=== PATIENT | male | born 1955 | race Caucasian/White ===

== ENCOUNTER 2016-05-22 16:09 | Outpatient (CLI) | payer OTHER | END 2016-05-22 23:00 | LOC: LAB SRH 16:09 | DX: Z79.01 Long term (current) use of anticoagulants (principal); I82.5Z9 Chronic embolism and thrombosis of unspecified deep veins of unspecified distal lower extremity; I48.91 Unspecified atrial fibrillation | CPT/HCPCS: 90074; 94060 ==

== ENCOUNTER → 2016-06-27 | Outpatient (CLI) | payer OTHER | LOC: LAB SRH 19:03 | DX: Z51.81 Encounter for therapeutic drug level monitoring (principal); Z79.01 Long term (current) use of anticoagulants; I48.91 Unspecified atrial fibrillation | CPT/HCPCS: 90074; 94060 ==

== ENCOUNTER 2016-07-20 18:57 | Emergency (ER) | payer OTHER ==
--- NOTE | 2016-07-20 22:49 | ED CLINICAL REPORT ---
Clinical Report - Physicians/Mid Levels [facility] [address] [place] [address] 07/20/2016 18:58 Patient: KAREL VAZQUEZ Arrived- By private vehicle. Historian- patient. HISTORY OF PRESENT ILLNESS Chief Complaint: SKIN RASH and TENDER AREA and (bilat LE edema/erythema). This started 2 months ago and is still present. It is described as painful. It has been located on the right lower extremity and left lower extremity. A possible cause has been identified. Similar symptoms previously: Milder. Recent medical care: Not recently seen/assessed. REVIEW OF SYSTEMS No fever, chills, difficulty breathing, enlarged lymph nodes or headache. No nausea or vomiting. PAST HISTORY See nurses notes. Hypertension. Diabetes mellitus. has not seen PCP for about 9 months-at . Pt staying here caring for mom. Concern-diabetes induced? Also w/ rash on flexural surfaces, knees,elbows. SOCIAL HISTORY Never smoker. No alcohol use or drug use. ADDITIONAL NOTES The nursing notes have been reviewed. PHYSICAL EXAM Vital Signs: 07/20/2016 22:53 BP: 148/74. HR: 78. RR: 18. O2 saturation: 98%. Pain level now: 0/10. 07/20/2016 19:46 BP: 161/87. HR: 79. RR: 18. O2 saturation: 99%. Temp: 97.6 F. Have been reviewed and appear to be correct. Appearance: Alert. Oriented X3. No acute distress. Eyes: Pupils equal, round and reactive to light. Conjunctivae and eyelids normal. Neck: Neck supple. CVS: Normal heart rate and rhythm. Respiratory: No respiratory distress. Breath sounds normal. Skin: Skin warm, dry, warm and dry. No lacerations. No urticaria. (Crack under L pinky toe<1cm, no drainage. Bilat LE stasis dermatitis. Maculopapular rash bilat elbows, knees.). Extremities: Bilateral moderate 2+ non-pitting edema of the lower extremities involving both feet. No calf tenderness. Neuro: Oriented X 3. LABS, X-RAYS, AND EKG Laboratory Tests: Laboratory tests have been ordered, with results reviewed and considered in the medical decision making process. CBC w Diff: (THOM: 07/20/2016 21:50) ( [facility]:12) Final results Test Result Flag Units (Reference) WHITE BLOOD COUNT 6.7 K/uL (4.5-11.5) RED BLOOD COUNT 4.84 M/uL (4.50-5.90) HEMOGLOBIN 14.7 gm/dL (13.5-17.5) HEMATOCRIT 44.4 % (41.0-53.0) MEAN CELL VOLUME 92 fL (80-100) MEAN CORPUSCULAR HGB 30 pg (26-34) MEAN CORPUSCULAR HGB CONC 33 g/dL (31-37) RED CELL DISTRIBUTION WIDTH 13.9 % (11.6-14.8) PLATELET COUNT 182 K/uL (150-400) NEUTROPHIL % 51.3 % (50-75) LYMPH % 31.6 % (25-40) MONO % 13.3 % (3-14) EOSINOPHIL % 3.5 % (0-4) BASOPHIL % 0.3 % (0-2) BNP: (THOM: 07/20/2016 21:50) ( [facility] 07/20/2016 22:27) Final results Test Result Flag Units (Reference) B-TYPE NATRIURETIC PEPTIDE 47 pg/ml (5-100) CMP: (THOM: 07/20/2016 21:50) ( [facility] 07/20/2016 22:40) Final results Test Result Flag Units (Reference) GLUCOSE 156 H mg/dL (70-110) BUN 16 mg/dL (7-18) CREATININE 1.0 mg/dL (0.6-1.3) Estimated GFR >60 mL/min Estimated GFR- >60 mL/min Note: Persistent reduction over 3 months in eGFR<60 mL/min/1.73 m2 defines CKD. Patients with eGFR values>=60 mL/min/1.73 m2 may also have CKD if evidence ofpersistent proteinuria. Additional information may be foundat www.kidney.org. SODIUM 141 mmol/L (136-145) POTASSIUM 4.5 mmol/L (3.5-5.1) CHLORIDE 103 mmol/L (98-107) CARBON DIOXIDE 29 mmol/L (21-32) CALCIUM 9.6 mg/dL (8.5-10.1) TOTAL PROTEIN 7.4 g/dL (6.4-8.2) ALBUMIN 3.8 g/dL (3.3-5.0) BILIRUBIN, TOTAL 0.4 mg/dL (0.0-1.0) ALKALINE PHOSPHATASE 86 U/L (46-116) AST (SGOT) 46 H U/L (15-37) ALT (SGPT) 83 H U/L (12-78) . Lab Tests Pending: Laboratory tests pending. PROGRESS AND PROCEDURES Course of Care: Discussed local care options Low suspicion for DVT or systemic infections. Patient is stable. Patient/family counseled. Disposition: Discharged. Condition: stable. CLINICAL IMPRESSION Bilateral pedal edema secondary to chronic venous insufficiency. Psoriasis. (Venous Stasis Dermatitis). INSTRUCTIONS Follow a diabetic diet Follow a low salt diet. (1. Rash-establish w/ dermatology-[facility] [phone] 2. Local PCP 3. Compression stockings. Elevate legs. 4. I have ordered a hemoglobin [id number] will not be back tonight-your doctor can request the result on Friday to give you.). Warnings: GENERAL WARNINGS: Return or contact your physician immediately if your condition worsens or changes unexpectedly, if not improving as expected, or if other problems arise. Prescription Medications: Keflex 500 mg: take 1 capsule orally every 8 hours for 7 days. No refill. Klor-Con 10 mEq: take 1 tablet orally every 24 hours. Dispense ten (10). No refills. Furosemide 20 mg: take 1 orally every 24 hours. Dispense ten (10). No refills. Understanding of the discharge instructions verbalized by patient. Follow-up with: Tony Maldonado MD, [facility], , [facility], [address] [place] [address] Follow up even if well. Call for the next available appointment. Reason for referral: establish with local PCP. Summary of care provided to patient via paper. (Electronically signed by Itzel Guevara A.R.N.P. 07/20/2016 23:53)
--- NOTE | 2016-07-20 22:49 | ED NURSING NOTES ---
Clinical Report - Nurses [facility] [address] [place] [address] 07/20/2016 18:58 Patient: KAREL VAZQUEZ TRIAGE Triage time 19:46. Acuity: LEVEL 4. Alert. No acute distress. COSME COMA SCORE: Minerva Coma Scale: 15- eyes open spontaneously (4); best verbal response- oriented x 4 (5); best motor response- obeys commands (6). --19:53 TonyaB, R.N. 19:46 07/20/16. BP: 161/87. HR: 79. RR: 18. O2 saturation: 99%. Temp: 97.6 F. Pain level now 8/10. --19:53 TonyaB, R.N. Chief Complaint: (feet swelling). --22:58 TonyaB, R.N. Weight: 136 kg. Height/Length: 71 inches. BMI: 41.8. --19:52 TonyaB, R.N. Medications Buprenorphine HCl Sublingual. --19:48 TonyaB, R.N. MetFORMIN HCl Oral. --19:48 TonyaB, R.N. Levothyroxine Sodium Oral. --19:48 TonyaB, R.N. Benicar Oral. --19:48 TonyaB, R.N. Ambien Oral. --19:48 TonyaB, R.N. Allergies No Known Drug Allergy. --19:48 TonyaB, R.N. History Arrived by private vehicle. Historian: patient. ( bilateral feet swelling). Onset. (months 2). He has had weakness and skin rash. Treatment ELECTRICIAN YARD: None. PAST MEDICAL HX: Type II diabetes mellitus treated with oral medication (3 years). Immunizations: up-to-date. SOCIAL HX: Never smoker. No alcohol use or drug use. No infectious disease exposure. SELF HARM ASSESSMENT: A self harm assessment was performed. The patient answered "no" to the question "Have you recently felt down, depressed, or hopeless?", "Have you noticed less interest or pleasure in doing things?", "Do you have thoughts of harming or killing yourself?", "Are you here because you tried to hurt yourself?", "Have you ever tried to hurt yourself before today?", "Have you recently had thoughts about harming or killing others?" and "Do you have any dangerous items in your possession?". FALL RISK ASSESSMENT: Fall risk assessment completed. No fall risk identified. NUTRITIONAL RISK ASSESSMENT: The nutritional risk assessment revealed no deficiencies. FUNCTIONAL ASSESSMENT: Functional assessment: no impairments noted. LEARNING NEEDS ASSESSMENT: The learning needs assessment revealed no barriers. SKIN INTEGRITY ASSESSMENT: Skin integrity risk assessment completed. No skin integrity risk identified. --19:53 Paris Hernandez PROBLEMS: Fibromyalgia. --19:49 Paris Hernandez Interventions ID band on patient. To treatment room. --19:53 Paris Hernandez PHYSICAL ASSESSMENT GENERAL / NEURO / PSYCH: Alert. Oriented X 4. Appears in no acute distress. HEENT: Pupils equal, round and reactive to light. No facial asymmetry noted. Mucous membranes are pink. RESPIRATORY: Respirations not labored. Chest nontender. Breath sounds within normal limits. CVS: Normal sinus rhythm noted. Capillary refill less than 2 seconds. Pulses within normal limits. GI / : Abdomen soft and nontender and normal bowel sounds. EXTREMITIES: Lower extremity edema. SKIN: Skin intact. Skin is warm and dry. Normal skin turgor. Swelling with erythema to right ankle and left ankle. --19:55 Paris Hernandez NURSING PROGRESS NOTES ( attempted blood draw twice, unable to get blood, lab notified and they will come collect blood.). --21:28 Paris Hernandez 21:38 07/20/2016 Keflex (Cephalexin) PO Capsules 500 mg given. Allergies verified and confirmed 5 rights. --21:38 Paris Hernandez 21:52 07/20/2016 Furosemide (Furosemide) PO Tablets 20 mg given. --21:52 Paris Hernandez DISPOSITION / DISCHARGE Condition at departure: improved. No learning barriers present. Discharge instructions provided and reviewed with the patient. Reviewed medication(s) side effects, precautions, dosing and course information. Prescription(s) given to the patient. Reviewed diet. Patient verbalized understanding. Written instructions provided in Kazakh. The patient was discharged by the nurse practitioner. He was discharged home. He left the Emergency Department ambulatory and via private vehicle. Patient driving. FALL RISK ASSESSMENT: Fall risk assessment completed. No fall risk identified. --22:54 Paris Hernandez 22:53 07/20/16. BP: 148/74. HR: 78. RR: 18. O2 saturation: 98%. Temp: deferred. Pain level now: 0/10. --22:54 Paris Hernandez Departure time: 22:54. --22:54 Paris Hernandez Locked/Released at 07/21/2016 3:13 by Mulugeta Sparrow R.N.
--- NOTE | 2016-07-20 22:49 | ED ORDER SUMMARY ---
..... Patient: KAREL VAZQUEZ OrderSheet [facility] VisitID: [id number] [place] [address] 60y, M Registration Date/Time: 07/20/2016 ORDER SHEET Weight: 136.0 kg Allergies: No Known Drug Allergy GENERAL ORDERS: - (Hemoglobin A1c) (21:07/20/2016 SThom A.R.N.P.) (Ack 21:16 CHagerty [facility] [employer] President) CBC w Diff Urgent (21:07/20/2016 SThom A.R.N.P.) (Ack 21:16 [facility] [employer] President) CMP Urgent (21:07/20/2016 SThom A.R.N.P.) (Ack 21:16 [facility] [employer] President) BNP Urgent (21:07/20/2016 SThom A.R.N.P.) (Ack 21:16 CH[facility] [employer] President) MEDICATION ORDERS: Furosemide PO 20 mg (NOW) (21:08 07/20/2016 SThom A.R.N.P.) (21:52 TBowen R.N.) Keflex PO 500 mg (NOW) (21:08 07/20/2016 SThom A.R.N.P.) (21:38 TBowen R.N.) IV FLUIDS: ORDER SHEET NOTES: [Electronically signed by tIzel GuevaraR.N.P. (23:53 07/20/2016)] [Electronically signed by Mulugeta Sparrow R.N. (03:13 07/21/2016)] [Electronically locked/signed by Mulugeta Sparrow R.N. (03:13 07/21/2016)]
--- NOTE | 2016-07-20 22:49 | ED CLINICAL REPORT ---
Clinical Report - Physicians/Mid Levels [facility] [address] [place] [address] 07/20/2016 18:58 Patient: KAREL VAZQUEZ Arrived- By private vehicle. Historian- patient. HISTORY OF PRESENT ILLNESS Chief Complaint: SKIN RASH and TENDER AREA and (bilat LE edema/erythema). This started 2 months ago and is still present. It is described as painful. It has been located on the right lower extremity and left lower extremity. A possible cause has been identified. Similar symptoms previously: Milder. Recent medical care: Not recently seen/assessed. REVIEW OF SYSTEMS No fever, chills, difficulty breathing, enlarged lymph nodes or headache. No nausea or vomiting. PAST HISTORY See nurses notes. Hypertension. Diabetes mellitus. has not seen PCP for about 9 months-at . Pt staying here caring for mom. Concern-diabetes induced? Also w/ rash on flexural surfaces, knees,elbows. SOCIAL HISTORY Never smoker. No alcohol use or drug use. ADDITIONAL NOTES The nursing notes have been reviewed. PHYSICAL EXAM Vital Signs: 07/20/2016 22:53 BP: 148/74. HR: 78. RR: 18. O2 saturation: 98%. Pain level now: 0/10. 07/20/2016 19:46 BP: 161/87. HR: 79. RR: 18. O2 saturation: 99%. Temp: 97.6 F. Have been reviewed and appear to be correct. Appearance: Alert. Oriented X3. No acute distress. Eyes: Pupils equal, round and reactive to light. Conjunctivae and eyelids normal. Neck: Neck supple. CVS: Normal heart rate and rhythm. Respiratory: No respiratory distress. Breath sounds normal. Skin: Skin warm, dry, warm and dry. No lacerations. No urticaria. (Crack under L pinky toe<1cm, no drainage. Bilat LE stasis dermatitis. Maculopapular rash bilat elbows, knees.). Extremities: Bilateral moderate 2+ non-pitting edema of the lower extremities involving both feet. No calf tenderness. Neuro: Oriented X 3. LABS, X-RAYS, AND EKG Laboratory Tests: Laboratory tests have been ordered, with results reviewed and considered in the medical decision making process. CBC w Diff: (THOM: 07/20/2016 21:50) ( [facility] 07/20/2016 22:12) Final results Test Result Flag Units (Reference) WHITE BLOOD COUNT 6.7 K/uL (4.5-11.5) RED BLOOD COUNT 4.84 M/uL (4.50-5.90) HEMOGLOBIN 14.7 gm/dL (13.5-17.5) HEMATOCRIT 44.4 % (41.0-53.0) MEAN CELL VOLUME 92 fL (80-100) MEAN CORPUSCULAR HGB 30 pg (26-34) MEAN CORPUSCULAR HGB CONC 33 g/dL (31-37) RED CELL DISTRIBUTION WIDTH 13.9 % (11.6-14.8) PLATELET COUNT 182 K/uL (150-400) NEUTROPHIL % 51.3 % (50-75) LYMPH % 31.6 % (25-40) MONO % 13.3 % (3-14) EOSINOPHIL % 3.5 % (0-4) BASOPHIL % 0.3 % (0-2) BNP: (THOM: 07/20/2016 21:50) ( [facility] 07/20/2016 22:27) Final results Test Result Flag Units (Reference) B-TYPE NATRIURETIC PEPTIDE 47 pg/ml (5-100) CMP: (THOM: 07/20/2016 21:50) ( [facility] 07/20/2016 22:40) Final results Test Result Flag Units (Reference) GLUCOSE 156 H mg/dL (70-110) BUN 16 mg/dL (7-18) CREATININE 1.0 mg/dL (0.6-1.3) Estimated GFR >60 mL/min Estimated GFR- >60 mL/min Note: Persistent reduction over 3 months in eGFR<60 mL/min/1.73 m2 defines CKD. Patients with eGFR values>=60 mL/min/1.73 m2 may also have CKD if evidence ofpersistent proteinuria. Additional information may be foundat www.kidney.org. SODIUM 141 mmol/L (136-145) POTASSIUM 4.5 mmol/L (3.5-5.1) CHLORIDE 103 mmol/L (98-107) CARBON DIOXIDE 29 mmol/L (21-32) CALCIUM 9.6 mg/dL (8.5-10.1) TOTAL PROTEIN 7.4 g/dL (6.4-8.2) ALBUMIN 3.8 g/dL (3.3-5.0) BILIRUBIN, TOTAL 0.4 mg/dL (0.0-1.0) ALKALINE PHOSPHATASE 86 U/L (46-116) AST (SGOT) 46 H U/L (15-37) ALT (SGPT) 83 H U/L (12-78) . Lab Tests Pending: Laboratory tests pending. PROGRESS AND PROCEDURES Course of Care: Discussed local care options Low suspicion for DVT or systemic infections. Patient is stable. Patient/family counseled. Disposition: Discharged. Condition: stable. CLINICAL IMPRESSION Bilateral pedal edema secondary to chronic venous insufficiency. Psoriasis. (Venous Stasis Dermatitis). INSTRUCTIONS Follow a diabetic diet Follow a low salt diet. (1. Rash-establish w/ dermatology-[facility] [phone] 2. Local PCP 3. Compression stockings. Elevate legs. 4. I have ordered a hemoglobin [id number] will not be back tonight-your doctor can request the result on Friday to give you.). Warnings: GENERAL WARNINGS: Return or contact your physician immediately if your condition worsens or changes unexpectedly, if not improving as expected, or if other problems arise. Prescription Medications: Keflex 500 mg: take 1 capsule orally every 8 hours for 7 days. No refill. Klor-Con 10 mEq: take 1 tablet orally every 24 hours. Dispense ten (10). No refills. Furosemide 20 mg: take 1 orally every 24 hours. Dispense ten (10). No refills. Understanding of the discharge instructions verbalized by patient. Follow-up with: Tony Maldonado MD, [facility], , [facility], [address] [place] [address] Follow up even if well. Call for the next available appointment. Reason for referral: establish with local PCP. Summary of care provided to patient via paper. (Electronically signed by Itzel Guevara A.R.N.P. 07/20/2016 23:53)
--- NOTE | 2016-07-20 22:49 | ED ORDER SUMMARY ---
..... Patient: KAREL VAZQUEZ OrderSheet [facility] VisitID: [id number] [place] [address] 60y, M Registration Date/Time: 07/20/2016 ORDER SHEET Weight: 136.0 kg Allergies: No Known Drug Allergy GENERAL ORDERS: - (Hemoglobin A1c) (21:07/20/2016 SThom A.R.N.P.) (Ack 21:16 CHagerty ER [employer]ater) CBC w Diff Urgent (21:07/20/2016 SThom A.R.N.P.) (Ack 21:16 CHagerty [facility] [employer]) CMP Urgent (21:07/20/2016 SThom A.R.N.P.) (Ack 21:16 CHagerty [facility] [employer]) BNP Urgent (21:07/20/2016 SThom A.R.N.P.) (Ack 21:16 CHagerty [facility] [employer]) MEDICATION ORDERS: Furosemide PO 20 mg (NOW) (21:08 07/20/2016 SThom A.R.N.P.) (21:52 TBowen R.N.) Keflex PO 500 mg (NOW) (21:08 07/20/2016 SThom A.R.N.P.) (21:38 TBowen R.N.) IV FLUIDS: ORDER SHEET NOTES: [Electronically signed by Itzel GuevaraR.N.P. (23:53 07/20/2016)] [Electronically signed by Mulugeta Sparrow R.N. (03:13 07/21/2016)] [Electronically locked/signed by Mulugeta Sparrow R.N. (03:13 07/21/2016)]
--- NOTE | 2016-07-20 22:49 | ED NURSING NOTES ---
Clinical Report - Nurses [facility] [address] [place] [address] 07/20/2016 18:58 Patient: KAREL VAZQUEZ TRIAGE Triage time 19:46. Acuity: LEVEL 4. Alert. No acute distress. COSME COMA SCORE: Arjay Coma Scale: 15- eyes open spontaneously (4); best verbal response- oriented x 4 (5); best motor response- obeys commands (6). --19:53 TonyaB, R.N. 19:46 07/20/16. BP: 161/87. HR: 79. RR: 18. O2 saturation: 99%. Temp: 97.6 F. Pain level now 8/10. --19:53 TonyaB, R.N. Chief Complaint: (feet swelling). --22:58 TonyaB, R.N. Weight: 136 kg. Height/Length: 71 inches. BMI: 41.8. --19:52 TonyaB, R.N. Medications Buprenorphine HCl Sublingual. --19:48 TonyaB, R.N. MetFORMIN HCl Oral. --19:48 TonyaB, R.N. Levothyroxine Sodium Oral. --19:48 TonyaB, R.N. Benicar Oral. --19:48 TonyaB, R.N. Ambien Oral. --19:48 TonyaB, R.N. Allergies No Known Drug Allergy. --19:48 TonyaB, R.N. History Arrived by private vehicle. Historian: patient. ( bilateral feet swelling). Onset. (months 2). He has had weakness and skin rash. Treatment INDUSTRIAL RELATIONS MANAGER: None. PAST MEDICAL HX: Type II diabetes mellitus treated with oral medication (3 years). Immunizations: up-to-date. SOCIAL HX: Never smoker. No alcohol use or drug use. No infectious disease exposure. SELF HARM ASSESSMENT: A self harm assessment was performed. The patient answered "no" to the question "Have you recently felt down, depressed, or hopeless?", "Have you noticed less interest or pleasure in doing things?", "Do you have thoughts of harming or killing yourself?", "Are you here because you tried to hurt yourself?", "Have you ever tried to hurt yourself before today?", "Have you recently had thoughts about harming or killing others?" and "Do you have any dangerous items in your possession?". FALL RISK ASSESSMENT: Fall risk assessment completed. No fall risk identified. NUTRITIONAL RISK ASSESSMENT: The nutritional risk assessment revealed no deficiencies. FUNCTIONAL ASSESSMENT: Functional assessment: no impairments noted. LEARNING NEEDS ASSESSMENT: The learning needs assessment revealed no barriers. SKIN INTEGRITY ASSESSMENT: Skin integrity risk assessment completed. No skin integrity risk identified. --19:53 Paris Hernandez PROBLEMS: Fibromyalgia. --19:49 Paris Hrenandez Interventions ID band on patient. To treatment room. --19:53 Paris Hernandez PHYSICAL ASSESSMENT GENERAL / NEURO / PSYCH: Alert. Oriented X 4. Appears in no acute distress. HEENT: Pupils equal, round and reactive to light. No facial asymmetry noted. Mucous membranes are pink. RESPIRATORY: Respirations not labored. Chest nontender. Breath sounds within normal limits. CVS: Normal sinus rhythm noted. Capillary refill less than 2 seconds. Pulses within normal limits. GI / : Abdomen soft and nontender and normal bowel sounds. EXTREMITIES: Lower extremity edema. SKIN: Skin intact. Skin is warm and dry. Normal skin turgor. Swelling with erythema to right ankle and left ankle. --19:55 Paris Hernandez NURSING PROGRESS NOTES ( attempted blood draw twice, unable to get blood, lab notified and they will come collect blood.). --21:28 Paris Hernandez 21:38 07/20/2016 Keflex (Cephalexin) PO Capsules 500 mg given. Allergies verified and confirmed 5 rights. --21:38 Paris Hernandez 21:52 07/20/2016 Furosemide (Furosemide) PO Tablets 20 mg given. --21:52 Paris Hernandez DISPOSITION / DISCHARGE Condition at departure: improved. No learning barriers present. Discharge instructions provided and reviewed with the patient. Reviewed medication(s) side effects, precautions, dosing and course information. Prescription(s) given to the patient. Reviewed diet. Patient verbalized understanding. Written instructions provided in Armenian. The patient was discharged by the nurse practitioner. He was discharged home. He left the Emergency Department ambulatory and via private vehicle. Patient driving. FALL RISK ASSESSMENT: Fall risk assessment completed. No fall risk identified. --22:54 Paris Hernandez 22:53 07/20/16. BP: 148/74. HR: 78. RR: 18. O2 saturation: 98%. Temp: deferred. Pain level now: 0/10. --22:54 Paris Hernandez Departure time: 22:54. --22:54 Paris Hernandez Locked/Released at 07/21/2016 3:13 by Mulugeta Sparrow R.N.
--- NOTE | 2016-07-21 03:14 | ED DISCHARGE INSTRUCTIONS ---
Patient: KAREL VAZQUEZ General Instructions [facility] VisitID: [id number] [place] [address] 60y, M Registration Date/Time: 07/20/2016 Bilateral pedal edema secondary to chronic venous insufficiency. Psoriasis. (Venous Stasis Dermatitis). INSTRUCTIONS Follow a diabetic diet Follow a low salt diet. (1. Rash-establish w/ dermatology-[facility] [phone] 2. Local PCP 3. Compression stockings. Elevate legs. 4. I have ordered a hemoglobin [id number] will not be back tonight-your doctor can request the result on Friday to give you.). Warnings: GENERAL WARNINGS: Return or contact your physician immediately if your condition worsens or changes unexpectedly, if not improving as expected, or if other problems arise. Prescription Medications: Keflex 500 mg: take 1 capsule orally every 8 hours for 7 days. No refill. Klor-Con 10 mEq: take 1 tablet orally every 24 hours. Dispense ten (10). No refills. Furosemide 20 mg: take 1 orally every 24 hours. Dispense ten (10). No refills. Understanding of the discharge instructions verbalized by patient. Follow-up with: Tony Maldonado MD, [facility], , [facility], [address] [place] [address] Follow up even if well. Call for the next available appointment. Reason for referral: establish with local PCP. Summary of care provided to patient via paper. ADDITIONAL INFORMATION Dermatitis (Non-Specific) Dermatitis is an inflammation of the skin. The exact cause of your rash is not certain. However, this rash does not appear to be an infection or contagious illness. Taking care of the rash at home should help relieve your symptoms. Home Care: Keep the areas of rash clean by washing it daily. This also helps to keep the skin moist. Use a neutral pH soap such as Dove or Lever 2000. Apply a moisturizing lotion after bathing to prevent dry skin. Avoid skin irritants (wool or silk clothing, grease, oils, some medicines, harsh soaps, and detergents). Wear absorbent, soft fabrics next to the skin rather than rough or scratchy materials. Unless another medicine was prescribed, you may use Hydrocortisone cream (which you can get without a prescription) to reduce the inflammation. Follow Up: Make an appointment with your doctor in the next 1 to 2 weeks if your symptoms do not improve with the above measures. Get Prompt Medical Attention if any of the following occur: Increasing area of redness or pain in the skin Yellow crusts or drainage from the rash Joint pain New rash that appears in other areas of the body Fever of 100.4F (38C) or higher, or as directed by your healthcare provider Leg Swelling [Bilateral] Swelling of the feet, ankles and legs is called "Edema." It is due to excess fluid collecting in the tissues. Because of gravity, excess fluid in the body settles in the lowest part. This is why the legs and feet are most affected. Some of the causes for edema include: Disease of the heart (congestive heart failure or "CHF") Prolonged standing or sitting (with the legs in the down position) Infection of the feet or legs Venous Insufficiency (congestion of blood in the veins of the legs) Varicose veins (dilated veins of the lower leg) Garters, or clothing that constricts your legs. (These will cause venous congestion by restricting blood flow.) Some medicines (hormones such as control pills; some blood pressure medicines, such as calcium channel blockers; steroids; some antidepressants such as MAO inhibitors and tricyclics.) Menstrual periods with fluid retention Renal insufficiency (a form of kidney disease) Liver failure (Some swelling is normal, but a sudden increase in leg swelling or weight gain can be a sign of a dangerous complication of ). Medical treatment will depend on the cause of your swelling. Diuretics (water pills) may be prescribed to remove excess fluid. Home Care: Do not wear garments that constrict your legs (such as garters). Elevate your legs while lying or sitting. If infection, injury or recent surgery is the cause for your swelling, stay off your legs as much as possible until symptoms improve. If your doctor says that your leg swelling is caused by venous insufficiency or varicose veins, do not sit or processing assistant one place for long periods of time. Take breaks and walk about every few hours. Brisk walking is a good exercise and helps circulate the congested blood from your leg. Talk to your doctor about the use of support stockings to prevent daytime leg swelling. If your doctor says that heart disease is the cause of your leg swelling, follow a low-salt diet to prevent excess fluid retention. Follow Up with your doctor or as advised by our staff. Get Prompt Medical Attention if any of the following occur: New or worsening shortness of breath or chest pain Increasing swelling in both legs or ankles Swelling of the abdomen Redness, warmth or swelling in one leg Fever of 100.4F (38C) or higher, or as directed by your healthcare provider Yellow color to the skin or eyes Rapid, unexplained weight gain Low-Salt Diet (2 Grams/Day) This diet eliminates foods that are high in salt and restricts the amount of salt that you cook with. It is most often used for patients with high blood pressure, edema (fluid retention), kidney, liver, and heart disease. Table salt contains the mineral sodium. The body needs sodium to work normally. But too much sodium can make your health problems worse. Your healthcare provider is recommending a low-salt (also called low-sodium) diet for you. Your total daily allowance of salt (sodium) is 2 grams. This equals 2,000 milligrams (mg). It is less than 1 teaspoon of table salt. This means you can have only about 700 mg of sodium at each meal. When you cook, limit the salt you use. And if you can avoid using salt, even better. Do not add salt at the table. So, throw away the saltshaker! When shopping, read the package labels. Salt is often called sodium on the label. Choose foods that are Salt-Free, Low Salt, or Very Low Salt. Note that foods with Reduced Salt may notlower your salt intake enough. Beverages OK: Tea, coffee, carbonated beverages, juices AVOID: Flavored international coffees, electrolyte replacement drinks, sports beverages Bread & Cereals OK: All regular bread, rolls, cereals, cakes; low-salt crackers, matzoh crackers AVOID: Salted crackers, pretzels, popcorn; filipino toast, pancakes, muffins Fruits & Desserts OK: Ice cream, frozen yogurt, juice bars, gelatin (Jell-O), cookies and pies, sugar, honey, jelly, hard candy AVOID: Most pies, cakes and cookies prepared or processed with salt, instant pudding Meats OK: All fresh meat, fish, poultry, low-salt tuna AVOID: Smoked, pickled, brine-cured, or salted meats or fish. Thisincludes herbert, chipped beef, corned beef, hot dogs, luncheon meats, ham, kosher meats, salt pork, sausage, canned tuna, salted codfish, smokedsalmon, caldera, sardines, or anchovies. Dairy OK: Milk, chocolate milk, hot chocolate mix; eggs, Low Salt cheeses, yogurt, egg substitute AVOID: Processed cheese, cheese spreads, Roquefort, Camembert, and cottage cheese, buttermilk, instant breakfast drink Beans, Potatoes & Pasta OK: Dry beans, split peas, lentils, potatoes, rice, macaroni, noodles, spaghetti without added salt AVOID: Potato chips, tortilla chips, and similar products Soups OK: Low-salt soups and broths made with allowed foods AVOID: Bouillon cubes, soups with smoked or salted meats, regular soup and broth Vegetables OK: Most are okay; low-salt tomato and vegetable juices AVOID: Sauerkraut and other brine-soaked vegetables, pickles and other pickled vegetables, tomato juice, olives Seasoning & Spices OK: Most seasonings are okay. Good substitutes for salt include: fresh herb blends, Tabasco, lemon, garlic, tyler, vinegar, dry mustard, parsley, cilantro, horseradish, tomato paste, regular margarine, mayonnaise, butter, cream cheese, vegetable oil, cream, low-salt salad dressing and gravy AVOID: Regular ketchup, relishes, pickles, soy sauce, teriyaki sauce, Worcestershire sauce, BBQ sauce, tartar sauce, meat tenderizer, chili sauce, regular gravy, regular salad dressing You have been given the following additional information: Dermatitis, Non-Specific Peripheral Edema, Bilateral Diet, Low Salt (2Gm) (Electronically signed by Itzel Guevara A.R.NPedroPPedro 07/20/2016 23:53)
--- NOTE | 2016-07-21 03:14 | ED MAR SUMMARY ---
..... Medication Administration Record [facility] [address] [place] [address] Patient: KAREL VAZQUEZ Visit ID: [id number] 60y, M Weight: 136.0 kg Height/Length: 71 in BMI: 41.8 ALLERGIES: No Known Drug Allergy Given 21:38 07/20/2016 David R.N. Medication Administered: KEFLEX [PO] (CEPHALEXIN), Dose: 500 mg Capsules PO. Medication Ordered: Keflex PO 500 mg (NOW). Given 21:52 07/20/2016 David, R.N. Medication Administered: FUROSEMIDE [PO] (FUROSEMIDE), Dose: 20 mg Tablets PO. Medication Ordered: Furosemide PO 20 mg (NOW).
--- NOTE | 2016-07-21 03:14 | ED MED RECONCILIATION SUMMARY ---
Patient: KAREL VAZQUEZ Medication Reconciliation Report [facility] VisitID: [id number] [address] [place] [address] 60y, M Registration Date/Time: 07/20/2016 Weight: 136.0 kg Height/Length: 71 in. BMI: 41.8 ALLERGIES: No Known Drug Allergy The patient's Home Medications are listed below: THE FOLLOWING MEDICATIONS NEED TO BE RECONCILED: Ambien Oral Benicar Oral Buprenorphine HCl Sublingual Levothyroxine Sodium Oral MetFORMIN HCl Oral The source(s) of the original Home Medication information: Not obtained. The following Medications were given to the patient in the Emergency Department: Keflex [PO] PO 500 mg, administered: 07/20/2016 9:38:00 PM Furosemide [PO] PO 20 mg, administered: 07/20/2016 9:52:00 PM The following Medications were prescribed to the patient: Keflex 500 mg: take 1 capsule orally every 8 hours for 7 days. No refill. -- Itzel Guevara A.R.N.P. Klor-Con 10 mEq: take 1 tablet orally every 24 hours. Dispense ten (10). No refills. -- Itzel Guevara A.R.N.P. Furosemide 20 mg: take 1 orally every 24 hours. Dispense ten (10). No refills. -- Itzel Guevara A.R.N.P.
--- NOTE | 2016-07-21 03:14 | ED MED RECONCILIATION SUMMARY ---
Patient: KAREL VAZQUEZ Medication Reconciliation Report [facility] VisitID: [id number] [address] [place] [address] 60y, M Registration Date/Time: 07/20/2016 Weight: 136.0 kg Height/Length: 71 in. BMI: 41.8 ALLERGIES: No Known Drug Allergy The patient's Home Medications are listed below: THE FOLLOWING MEDICATIONS NEED TO BE RECONCILED: Ambien Oral Benicar Oral Buprenorphine HCl Sublingual Levothyroxine Sodium Oral MetFORMIN HCl Oral The source(s) of the original Home Medication information: Not obtained. The following Medications were given to the patient in the Emergency Department: Keflex [PO] PO 500 mg, administered: 07/20/2016 9:38:00 PM Furosemide [PO] PO 20 mg, administered: 07/20/2016 9:52:00 PM The following Medications were prescribed to the patient: Keflex 500 mg: take 1 capsule orally every 8 hours for 7 days. No refill. -- Itzel Guevara A.R.N.P. Klor-Con 10 mEq: take 1 tablet orally every 24 hours. Dispense ten (10). No refills. -- Itzel Guevara A.R.N.P. Furosemide 20 mg: take 1 orally every 24 hours. Dispense ten (10). No refills. -- Itzel Guevara A.R.N.P.
--- NOTE | 2016-07-21 03:14 | ED DISCHARGE INSTRUCTIONS ---
Patient: KAREL VAZQUEZ General Instructions [facility] VisitID: [id number] [place] [address] 60y, M Registration Date/Time: 07/20/2016 Bilateral pedal edema secondary to chronic venous insufficiency. Psoriasis. (Venous Stasis Dermatitis). INSTRUCTIONS Follow a diabetic diet Follow a low salt diet. (1. Rash-establish w/ dermatology-[facility] [phone] 2. Local PCP 3. Compression stockings. Elevate legs. 4. I have ordered a hemoglobin [id number] will not be back tonight-your doctor can request the result on Friday to give you.). Warnings: GENERAL WARNINGS: Return or contact your physician immediately if your condition worsens or changes unexpectedly, if not improving as expected, or if other problems arise. Prescription Medications: Keflex 500 mg: take 1 capsule orally every 8 hours for 7 days. No refill. Klor-Con 10 mEq: take 1 tablet orally every 24 hours. Dispense ten (10). No refills. Furosemide 20 mg: take 1 orally every 24 hours. Dispense ten (10). No refills. Understanding of the discharge instructions verbalized by patient. Follow-up with: Tony Maldonado MD, [facility], , [facility], [address] [place] [address] Follow up even if well. Call for the next available appointment. Reason for referral: establish with local PCP. Summary of care provided to patient via paper. ADDITIONAL INFORMATION Dermatitis (Non-Specific) Dermatitis is an inflammation of the skin. The exact cause of your rash is not certain. However, this rash does not appear to be an infection or contagious illness. Taking care of the rash at home should help relieve your symptoms. Home Care: Keep the areas of rash clean by washing it daily. This also helps to keep the skin moist. Use a neutral pH soap such as Dove or Lever 2000. Apply a moisturizing lotion after bathing to prevent dry skin. Avoid skin irritants (wool or silk clothing, grease, oils, some medicines, harsh soaps, and detergents). Wear absorbent, soft fabrics next to the skin rather than rough or scratchy materials. Unless another medicine was prescribed, you may use Hydrocortisone cream (which you can get without a prescription) to reduce the inflammation. Follow Up: Make an appointment with your doctor in the next 1 to 2 weeks if your symptoms do not improve with the above measures. Get Prompt Medical Attention if any of the following occur: Increasing area of redness or pain in the skin Yellow crusts or drainage from the rash Joint pain New rash that appears in other areas of the body Fever of 100.4F (38C) or higher, or as directed by your healthcare provider Leg Swelling [Bilateral] Swelling of the feet, ankles and legs is called "Edema." It is due to excess fluid collecting in the tissues. Because of gravity, excess fluid in the body settles in the lowest part. This is why the legs and feet are most affected. Some of the causes for edema include: Disease of the heart (congestive heart failure or "CHF") Prolonged standing or sitting (with the legs in the down position) Infection of the feet or legs Venous Insufficiency (congestion of blood in the veins of the legs) Varicose veins (dilated veins of the lower leg) Garters, or clothing that constricts your legs. (These will cause venous congestion by restricting blood flow.) Some medicines (hormones such as control pills; some blood pressure medicines, such as calcium channel blockers; steroids; some antidepressants such as MAO inhibitors and tricyclics.) Menstrual periods with fluid retention Renal insufficiency (a form of kidney disease) Liver failure (Some swelling is normal, but a sudden increase in leg swelling or weight gain can be a sign of a dangerous complication of ). Medical treatment will depend on the cause of your swelling. Diuretics (water pills) may be prescribed to remove excess fluid. Home Care: Do not wear garments that constrict your legs (such as garters). Elevate your legs while lying or sitting. If infection, injury or recent surgery is the cause for your swelling, stay off your legs as much as possible until symptoms improve. If your doctor says that your leg swelling is caused by venous insufficiency or varicose veins, do not sit or cloth bleaching range operator chief one place for long periods of time. Take breaks and walk about every few hours. Brisk walking is a good exercise and helps circulate the congested blood from your leg. Talk to your doctor about the use of support stockings to prevent daytime leg swelling. If your doctor says that heart disease is the cause of your leg swelling, follow a low-salt diet to prevent excess fluid retention. Follow Up with your doctor or as advised by our staff. Get Prompt Medical Attention if any of the following occur: New or worsening shortness of breath or chest pain Increasing swelling in both legs or ankles Swelling of the abdomen Redness, warmth or swelling in one leg Fever of 100.4F (38C) or higher, or as directed by your healthcare provider Yellow color to the skin or eyes Rapid, unexplained weight gain Low-Salt Diet (2 Grams/Day) This diet eliminates foods that are high in salt and restricts the amount of salt that you cook with. It is most often used for patients with high blood pressure, edema (fluid retention), kidney, liver, and heart disease. Table salt contains the mineral sodium. The body needs sodium to work normally. But too much sodium can make your health problems worse. Your healthcare provider is recommending a low-salt (also called low-sodium) diet for you. Your total daily allowance of salt (sodium) is 2 grams. This equals 2,000 milligrams (mg). It is less than 1 teaspoon of table salt. This means you can have only about 700 mg of sodium at each meal. When you cook, limit the salt you use. And if you can avoid using salt, even better. Do not add salt at the table. So, throw away the saltshaker! When shopping, read the package labels. Salt is often called sodium on the label. Choose foods that are Salt-Free, Low Salt, or Very Low Salt. Note that foods with Reduced Salt may notlower your salt intake enough. Beverages OK: Tea, coffee, carbonated beverages, juices AVOID: Flavored international coffees, electrolyte replacement drinks, sports beverages Bread & Cereals OK: All regular bread, rolls, cereals, cakes; low-salt crackers, matzoh crackers AVOID: Salted crackers, pretzels, popcorn; marshallese toast, pancakes, muffins Fruits & Desserts OK: Ice cream, frozen yogurt, juice bars, gelatin (Jell-O), cookies and pies, sugar, honey, jelly, hard candy AVOID: Most pies, cakes and cookies prepared or processed with salt, instant pudding Meats OK: All fresh meat, fish, poultry, low-salt tuna AVOID: Smoked, pickled, brine-cured, or salted meats or fish. Thisincludes herbert, chipped beef, corned beef, hot dogs, luncheon meats, ham, kosher meats, salt pork, sausage, canned tuna, salted codfish, smokedsalmon, caldera, sardines, or anchovies. Dairy OK: Milk, chocolate milk, hot chocolate mix; eggs, Low Salt cheeses, yogurt, egg substitute AVOID: Processed cheese, cheese spreads, Roquefort, Camembert, and cottage cheese, buttermilk, instant breakfast drink Beans, Potatoes & Pasta OK: Dry beans, split peas, lentils, potatoes, rice, macaroni, noodles, spaghetti without added salt AVOID: Potato chips, tortilla chips, and similar products Soups OK: Low-salt soups and broths made with allowed foods AVOID: Bouillon cubes, soups with smoked or salted meats, regular soup and broth Vegetables OK: Most are okay; low-salt tomato and vegetable juices AVOID: Sauerkraut and other brine-soaked vegetables, pickles and other pickled vegetables, tomato juice, olives Seasoning & Spices OK: Most seasonings are okay. Good substitutes for salt include: fresh herb blends, Tabasco, lemon, garlic, tyler, vinegar, dry mustard, parsley, cilantro, horseradish, tomato paste, regular margarine, mayonnaise, butter, cream cheese, vegetable oil, cream, low-salt salad dressing and gravy AVOID: Regular ketchup, relishes, pickles, soy sauce, teriyaki sauce, Worcestershire sauce, BBQ sauce, tartar sauce, meat tenderizer, chili sauce, regular gravy, regular salad dressing You have been given the following additional information: Dermatitis, Non-Specific Peripheral Edema, Bilateral Diet, Low Salt (2Gm) (Electronically signed by Itzel Guevara A.R.NPedroPPedro 07/20/2016 23:53)
--- NOTE | 2016-07-21 03:14 | ED MAR SUMMARY ---
..... Medication Administration Record [facility] [address] [place] [address] Patient: KAREL VAZQUEZ Visit ID: [id number] 60y, M Weight: 136.0 kg Height/Length: 71 in BMI: 41.8 ALLERGIES: No Known Drug Allergy Given 21:38 07/20/2016 David R.N. Medication Administered: KEFLEX [PO] (CEPHALEXIN), Dose: 500 mg Capsules PO. Medication Ordered: Keflex PO 500 mg (NOW). Given 21:52 07/20/2016 David, R.N. Medication Administered: FUROSEMIDE [PO] (FUROSEMIDE), Dose: 20 mg Tablets PO. Medication Ordered: Furosemide PO 20 mg (NOW).
== END 2016-07-20 22:54 | disposition home or self-care (01) ==
LOC: ED SRH 18:57
DX: I83.12 Varicose veins of left lower extremity with inflammation (principal); I83.11 Varicose veins of right lower extremity with inflammation; L40.9 Psoriasis, unspecified; I10 Essential (primary) hypertension; E11.9 Type 2 diabetes mellitus without complications
CPT/HCPCS: 90100; 91286; 91320; 95059

== ENCOUNTER 2016-07-26 13:25 | Outpatient (CLI) | payer OTHER ==
--- NOTE | 2016-07-26 15:38 | DIAGNOSTIC IMAGING REPORT ---
PROCEDURE: US VENOUS - BILATERAL EXT INDICATION: CALF PAIN TECHNIQUE: Color Doppler duplex imaging of the deep and superficial venous system without and with compression. COMPARISON: Left lower extremity venous duplex ultrasound 11/23/2015 FINDINGS: RIGHT LOWER EXTREMITY: Deep and superficial venous system of the right lower extremity is within normal limits. There is no evidence of deep vein thrombosis or superficial thrombophlebitis. LEFT LOWER EXTREMITY: Deep and superficial venous system of the left lower extremity is within normal limits. There is no evidence of deep vein thrombosis or superficial thrombophlebitis. IMPRESSION: 1. Negative venous ultrasound of the bilateral lower extremities. 2. Results discussed with Xuan Douglas
== END 2016-07-26 23:00 ==
LOC: US SRH 13:25
DX: M79.669 Pain in unspecified lower leg (principal)

== ENCOUNTER 2016-09-17 14:06 | Outpatient (CLI) | payer OTHER | END 2016-09-17 23:00 | disposition home or self-care (01) | LOC: LAB SRH 14:06 | DX: Z51.81 Encounter for therapeutic drug level monitoring (principal); Z79.01 Long term (current) use of anticoagulants; I82.5Z9 Chronic embolism and thrombosis of unspecified deep veins of unspecified distal lower extremity; I48.91 Unspecified atrial fibrillation | CPT/HCPCS: 90074; 94060 ==

== ENCOUNTER → 2016-10-11 | Outpatient (CLI) | payer OTHER | LOC: LAB SRH 00:23 | DX: Z51.81 Encounter for therapeutic drug level monitoring (principal); Z79.01 Long term (current) use of anticoagulants; I48.91 Unspecified atrial fibrillation; I82.5Z9 Chronic embolism and thrombosis of unspecified deep veins of unspecified distal lower extremity | CPT/HCPCS: 94060 ==

== ENCOUNTER 2016-11-06 18:33 | Outpatient (CLI) | payer OTHER | END 2016-11-06 23:00 | disposition home or self-care (01) | LOC: LAB SRH 18:33 | DX: Z51.81 Encounter for therapeutic drug level monitoring (principal); Z79.01 Long term (current) use of anticoagulants; I48.91 Unspecified atrial fibrillation; I82.5Z9 Chronic embolism and thrombosis of unspecified deep veins of unspecified distal lower extremity | CPT/HCPCS: 90074; 94060 ==